=== PATIENT | male | born 1925 | race Caucasian/White ===

== ENCOUNTER 2016-10-28 18:09 | Emergency (ER) | payer MEDICARE, BC ==
[2016-10-28 18:29] VITALS: BP 117/59
--- NOTE | 2016-10-28 18:53 | EDM.PDOC ---
<Freda Hunt - Last Filed: 10/28/16 18:46> ED HPI GENERAL MEDICAL PROBLEM - General Chief Complaint: Respiratory Problem Stated Complaint: COMING IN OWN VEHICLE,HIGH FEVER, [id number] Time Seen by Provider: 10/28/16 18:46 Source of Information: Reports: Patient, Family, RN, RN Notes Reviewed History Limitations: Reports: No Limitations - History of Present Illness INITIAL COMMENTS - FREE TEXT/NARRATIVE: Patient presents to ER with his with c/o cough and generalized weakness. states beginning Sunday, he has had a cough, yellow sputum production, fever and chills on and off, and weakness. He states today he has had a temperature of 101.6 for which his gave him Bufferin. He also developed abdominal pain/upset stomach this after noon for which his gave him pepto bismol. He states the upset stomach is improved since arrival. also states he had a dental procedure last week for which he was treated with amoxicillin. Denies chest pains, sob, or pain in general at this time. Onset: Gradual Onset Date: 10/24/16 Location: Reports: Abdomen Quality: Reports: Ache Severity: Moderate Improves with: Reports: Other (Given pepto bismol by his prior to arrival. States this has helped.) Worsens with: Reports: None Associated Symptoms: Reports: Cough, cough w sputum, Fever/Chills, Loss of Appetite, Nausea/Vomiting (no vomiting), Weakness Treatments LINER REPLACER: Reports: Other (see below) (Bufferin and pepto bismol) - Related Data Allergies Allergy/AdvReac Type Severity Reaction Status Date / Time No Known Allergies Allergy Verified 10/28/16 18:32 Home Meds: Home Meds Donepezil [Aricept] 5 mg PO BEDTIME 10/28/16 [History] Glimepiride [Glimepiride] 4 mg PO BID 10/28/16 [History] Linagliptin [Tradjenta] 5 mg PO DAILY 10/28/16 [History] Losartan [Cozaar] 100 mg PO DAILY 10/28/16 [History] Omeprazole 40 mg PO DAILY 10/28/16 [History] Past Medical History HEENT History: Reports: Impaired Vision Cardiovascular History: Reports: Hypertension Gastrointestinal History: Reports: GERD Neurological History: Reports: CVA Psychiatric History: Reports: Anxiety Endocrine/Metabolic History: Reports: Diabetes, Type II Oncologic (Cancer) History: Reports: Prostate - Past Surgical History GI Surgical History: Reports: Appendectomy Male Surgical History: Reports: Prostatectomy Social & Family History - Tobacco Use Smoking Status *Q: Never Smoker - Caffeine Use Caffeine Use: Reports: Coffee, Soda, Tea - Recreational Drug Use Recreational Drug Use: No ED ROS GENERAL - Review of Systems Review Of Systems: See Below Constitutional: Reports: Fever, Chills, Malaise, Weakness, Decreased Appetite HEENT: Reports: Glasses, Throat Pain Respiratory: Reports: Cough, Sputum (yellow) Cardiovascular: Reports: No Symptoms Endocrine: Reports: No Symptoms GI/Abdominal: Reports: Abdominal Pain, Nausea : Reports: No Symptoms Musculoskeletal: Reports: No Symptoms Skin: Reports: No Symptoms Neurological: Reports: No Symptoms Psychiatric: Reports: No Symptoms Hematologic/Lymphatic: Reports: No Symptoms Immunologic: Reports: No Symptoms ED EXAM, GENERAL - Physical Exam Exam: See Below Exam Limited By: No Limitations General Appearance: Alert, WD/WN, No Apparent Distress Eye Exam: Bilateral Eye: Normal Inspection, PERRL Ears: Normal External Exam Ear Exam: Bilateral Ear: TM normal Nose: Normal Inspection Throat/Mouth: Normal Inspection, Normal Oropharynx Head: Atraumatic, Normocephalic Neck: Normal Inspection, Non-Tender Respiratory/Chest: No Respiratory Distress, Crackles Cardiovascular: Normal Peripheral Pulses, Regular Rate, Rhythm, No Edema, No Gallop, No JVD, No Murmur, No Rub Peripheral Pulses: 2+: Radial (L), Radial (R) GI/Abdominal: Normal Bowel Sounds, Soft, Tender (Male) Exam: Deferred Rectal (Males) Exam: Deferred Back Exam: Normal Inspection, Full Range of Motion Extremities: Normal Inspection, Normal Range of Motion Neurological: Alert, Oriented Psychiatric: Normal Affect, Normal Mood Skin Exam: Warm, Dry, Intact, Normal Color, No Rash Lymphatic: No Adenopathy Course - Vital Signs Last Recorded V/S: Last Vital Signs Temp 37.0 C 10/28/16 18:28 Pulse 106 H 10/28/16 18:28 Resp 20 10/28/16 18:28 BP 117/59 L 10/28/16 18:28 Pulse Ox 92 L 10/28/16 18:28 - Orders/Labs/Meds Orders: Active Orders 24 hr Category Date Time Status Chest 2V [CR] Urgent Exams 10/28/16 18:38 Taken CULTURE BLOOD [BC] Stat Lab 10/28/16 19:21 Ordered CULTURE BLOOD [BC] Stat Lab 10/28/16 19:21 Ordered STREP SCRN A RAPID W CULT CONF [RM] Stat Lab 10/28/16 18:38 Uncollected Azithromycin [Zithromax] Med 10/28/16 20:36 Once 500 mg PO ONETIME ONE Blood Culture x2 Reflex Set [OM.PC] Stat Oth 10/28/16 19:20 Ordered Medication Orders Azithromycin (Zithromax) 500 mg PO ONETIME ONE Stop: 10/28/16 20:37 Labs: Laboratory Tests 10/28/16 10/28/16 10/28/16 Range/Units 18:50 18:50 19:30 WBC 16.4 H (5.0-10.0) 10^3/uL RBC 4.93 (4.6-6.2) 10^6/uL Hgb 15.6 (14.0-18.0) g/dL Hct 46.4 (40.0-54.0) % MCV 94.1 (80-100) fL MCH 31.6 (27.0-34.0) pg MCHC 33.6 (33.0-35.0) g/dL Plt Count 216 (150-450) 10^3/uL Neut % (Auto) 78.6 H (42.2-75.2) % Lymph % (Auto) 10.1 L (20.5-50.1) % [place] % (Auto) 10.1 H (2-8) % Eos % (Auto) 1.0 (1.0-3.0) % Baso % (Auto) 0.2 (0.0-1.0) % Sodium 140 (135-145) mmol/L Potassium 4.6 (3.6-5.0) mmol/L Chloride 103 (101-111) mmol/L Carbon Dioxide 25.0 (21.0-31.0) mmol/L Anion Gap 16.6 BUN 22 H (7-18) mg/dL Creatinine 2.0 H (0.6-1.3) mg/dL Est Cr Clr Drug Dosing 27.48 mL/min Estimated GFR (MDRD) 32 BUN/Creatinine Ratio 11.00 Glucose 313 H (74-105) mg/dL Lactic Acid 1.5 (0.5-2.2) mmol/L Calcium 8.8 (8.4-10.2) mg/dl Total Bilirubin 0.7 (0.2-1.0) mg/dL AST 21 (10-42) IU/L ALT 15 (10-60) IU/L Alkaline Phosphatase 58 (42-121) IU/L Total Protein 7.1 (6.7-8.2) g/dl Albumin 3.5 (3.2-5.5) g/dl Globulin 3.6 Albumin/Globulin Ratio 0.97 Meds: Medications Generic Name Dose Route Start Last Admin Trade Name Freq PRN Reason Stop Dose Admin Azithromycin 500 mg 10/28/16 20:36 Zithromax PO 10/28/16 20:37 ONETIME ONE Discontinued Medications Generic Name Dose Route Start Last Admin Trade Name Freq PRN Reason Stop Dose Admin Ceftriaxone Sodium 1 gm/ 50 mls @ 100 mls/hr 10/28/16 20:05 10/28/16 20:31 Sodium Chloride IV 10/28/16 20:34 100 mls/hr ONETIME ONE Administration Departure - Departure Disposition: Home, Self-Care 01 Clinical Impression: Acute bronchitis Qualifiers: Bronchitis organism: unspecified organism Qualified Code(s): J20.9 - Acute bronchitis, unspecified - Discharge Information Instructions: Acute Bronchitis, [id number] Forms: ED Department Discharge Care Plan Goals: The patient and were advised of the examination, lab and x-ray results during the visit. The patient was given an IV dose of Rocephin and an oral dose of Azithromycin while in the ED. The patient was given a script for Azithromycin (250 mg) #4 to take 1 by mouth daily for 4 days ant Tessalon Pearles (100 mg) #20 to take 1 by mouth 3 times per day. If the patient has any additional symptoms or concerns, the patient should follow-up with his primary care facility or return to the emergency department. - My Orders Last 24 Hours: My Active Orders 10/28/16 19:20 Blood Culture x2 Reflex Set [OM.PC] Stat 10/28/16 19:21 CULTURE BLOOD [BC] Stat CULTURE BLOOD [BC] Stat 10/28/16 20:36 Azithromycin [Zithromax] 500 mg PO ONETIME ONE - Assessment/Plan Last 24 Hours: My Active Orders 10/28/16 19:20 Blood Culture x2 Reflex Set [OM.PC] Stat 10/28/16 19:21 CULTURE BLOOD [BC] Stat CULTURE BLOOD [BC] Stat 10/28/16 20:36 Azithromycin [Zithromax] 500 mg PO ONETIME ONE <Deniz Grajeda M - Last Filed: 10/28/16 20:40> Departure - Departure Time of Disposition: 20:37 Condition: Fair
[2016-10-28] MEDS ORDERED: cefTRIAXone 1 GM in Sodium Chloride 0.9% 50 ML IV ONE (20:05)
[2016-10-28] MEDS ORDERED: Azithromycin 250 MG Tab PO ONE (20:36)
== END 2016-10-28 21:09 | disposition home or self-care (01) ==
LOC: DL.ED 18:09
DX: J20.9 Acute bronchitis, unspecified (principal); I10 Essential (primary) hypertension; K21.9 Gastro-esophageal reflux disease without esophagitis; E11.9 Type 2 diabetes mellitus without complications; Z86.73 Personal history of transient ischemic attack (TIA), and cerebral infarction without residual deficits; Z79.899 Other long term (current) drug therapy; Z79.84 Long term (current) use of oral hypoglycemic drugs
CPT/HCPCS: 36415; 71020; 80053; 83605; 85025; 87040; 96365; 99283; A9270; J0696; J7050